=== PATIENT | female | born 1950 | race Caucasian/White ===

== ENCOUNTER → 2020-03-20 13:31 | Outpatient (CLI) | payer MEDICARE, SELFPAY ==
--- NOTE | ~2020-03-20 | XR_ITS ---
EXAMINATION: XR abdomen/kub 1V INDICATION: Calculus of the right kidney TECHNIQUE: Supine views of the abdomen were obtained on 2 radiographs. COMPARISON: 03/23/2019 FINDINGS: A stable 10 mm stone projects over the right mid kidney. No additional urinary tract calcul i are identified. There is a moderate volume of colonic stool. The visualized lung bases are clear. T here is mild right and moderate left hip osteoarthritis. IMPRESSION: 1. Stable right nephrolithiasis. Reviewed, dictated and finalized at location A.
== END ==
PROVIDERS: PCP Family Medicine; Visit Provider Urology
DX: N20.0 Calculus of kidney (principal)
CPT/HCPCS: 74018

== ENCOUNTER → 2021-07-09 12:39 | Outpatient (CLI) | payer MEDICARE, SELFPAY ==
--- NOTE | ~2021-07-09 | MM_ITS ---
EXAMINATION: MM screening [facility] BI w kendy HISTORY: Screening mammogram TECHNIQUE: Craniocaudal and mediolateral oblique 3-D tomosynthesis images were obtained and synthetic 2-D images were generated. CAD analysis was submitted and interpreted. COMPARISON: 03/23/2019, 03/18/2018 BREAST PARENCHYMAL COMPOSITION: There are scattered areas of fibroglandular density. FINDINGS: There is no evidence of suspicious mass, calcification, or architectural distortion to sugg est malignancy in either breast. There has been no suspicious interval change. IMPRESSION: 1. No mammographic evidence of malignancy. 2. Recommend routine screening mammography in one year. BI-RADS Category 1: Negative Reviewed, dictated and finalized at location A. T COIL WINDER
== END ==
PROVIDERS: PCP Family Medicine; Visit Provider Physician Assistant Medical
DX: Z12.31 Encounter for screening mammogram for malignant neoplasm of breast (principal)
CPT/HCPCS: 77063; 77067

== ENCOUNTER 2022-07-23 09:35 | Outpatient (CLI) | payer MEDICARE, SELFPAY | END 2022-07-23 09:36 | disposition home or self-care (01) | LOC: ANHBWCAUD 09:35 | PROVIDERS: PCP Family Medicine; Visit Provider Family Medicine | DX: H91.93 Unspecified hearing loss, bilateral (principal); H93.19 Tinnitus, unspecified ear | CPT/HCPCS: 92557; 92567 ==

== ENCOUNTER 2022-09-09 12:40 | Outpatient (CLI) | payer MEDICARE, SELFPAY ==
--- NOTE | ~2022-09-09 | US_ITS ---
EXAMINATION: US carotid duplex BI DATE: 09/09/2022 13:59 INDICATION: Atherosclerotic heart disease of [place] coronary arteries. TECHNIQUE: Grayscale, color Doppler, and pulsed Doppler images of the cervical carotid arteries were obtained. The degree of vessel stenosis is placed in one of the following categories: normal, <50%, 5 0-69%, >=70% but less than near-occlusion, near-occlusion, or total occlusion. Note that percent sten osis relative to normal distal artery lumen diameter is indirectly measured from velocity measurement s as described by Tk, et al. Radiology 2003; [id number]:[id number]. COMPARISON: None. FINDINGS: RIGHT: The right common carotid artery (CCA) peak systolic velocity (PSV) is 94 cm/s. The right internal car otid artery (ICA) PSV is 98 cm/s. The right ICA end-diastolic velocity (EDV) is 28 cm/s. The right IC A/CCA PSV ratio is 1.0. Grayscale and color Doppler images yield an estimate of <50% diameter reducti on from plaque in the ICA. The external carotid artery (ECA) PSV is 106 cm/s. There is antegrade flow in the right vertebral artery. LEFT: The left CCA PSV is 77 cm/s. The left ICA PSV is 89 cm/s. The left ICA EDV is 28 cm/s. The left ICA/C CA PSV ratio is 1.2. Grayscale and color Doppler images yield an estimate of <50% diameter reduction from plaque in the ICA. The ECA PSV is 98 cm/s. There is antegrade flow in the left vertebral artery. IMPRESSION: 1. <50% stenosis in the right internal carotid artery. 2. <50% stenosis in the left internal carotid artery. Reviewed, dictated and finalized at location B. M ADJUSTER
== END 2022-09-09 12:41 | disposition home or self-care (01) ==
PROVIDERS: PCP Family Medicine; Visit Provider Family Medicine
DX: I25.10 Atherosclerotic heart disease of native coronary artery without angina pectoris (principal); R09.89 Other specified symptoms and signs involving the circulatory and respiratory systems; I65.23 Occlusion and stenosis of bilateral carotid arteries
CPT/HCPCS: 93880

== ENCOUNTER → 2022-11-04 11:06 | Outpatient (CLI) | payer MEDICARE, SELFPAY ==
--- NOTE | ~2022-11-04 | CT_ITS ---
CT ANGIOGRAM HEAD History: Left pulsatile tinnitus. Technique: Noncontrast imaging of the brain was performed. Serial spiral axial images through the hea d were then obtained during arterial phase IV injection of 100 cc of Omnipaque 350. 3-D postprocessin g and MIP images were then reconstructed on the remote workstation. Dose reduction technique was used on this scan by utilizing automated exposure control and iterative reconstruction technique. The dos e-length product (DLP) was 1192.84 mGy-cm. Noncontrast brain findings: No parenchymal abnormality the brain seen. No acute infarct, intracranial hemorrhage, or mass lesion identified. Ventricles and subarachnoid spaces are unremarkable. Orbits a re grossly unremarkable. Paranasal sinuses and mastoid air cells are clear. Calvarium intact. CTA head findings: Distal vertebral arteries, basilar artery, and posterior cerebral arteries are pat ent. Distal internal carotid arteries, middle cerebral arteries, and anterior cerebral arteries are p atent. No stenosis or large vessel occlusion. No aneurysm. Impression: Unremarkable exam. Reviewed, dictated and finalized at location . Impression: Unremarkable exam.
[2022-11-04 11:26] LABS: Estimated Glomerular Filt Rate 55
== END ==
PROVIDERS: PCP Family Medicine; Visit Provider Otolaryngology
DX: H93.A2 Pulsatile tinnitus, left ear (principal); H61.21 Impacted cerumen, right ear
CPT/HCPCS: 70496; Q9967

== ENCOUNTER 2023-03-31 12:01 | Outpatient (CLI) | payer MEDICARE, SELFPAY ==
--- NOTE | ~2023-03-31 | XR_ITS ---
EXAMINATION: XR hand LT min 3V, XR hand RT min 3V DATE: 03/31/2023 12:18 INDICATION: Rheumatoid arthritis with limited range of motion at the bilateral hands TECHNIQUE: 1. Posteroanterior, oblique and lateral views of the left hand were obtained. 2. Posteroanterior, oblique and lateral views of the right hand were obtained. COMPARISON: None. FINDINGS: Diffuse osteopenia. There is moderate palmar subluxation at the left third metacarpophalangeal joint. Otherwise normal alignment at the bilateral hands and wrists. No fracture. Polyarticular osteoarthri tis characterized by nonuniform joint space narrowing and/or marginal osteophytes at the bilateral meléndez nds and wrists. The severe at the bilateral first carpal metacarpal joints and at the right and radio carpal and first metacarpophalangeal joints. Joint space narrowing is of moderate severity at the lef t first and third metacarpophalangeal joints in the right second, fourth and fifth metacarpophalangea l joints. Mild joint space narrowing at the left radiocarpal, bilateral mid carpal and triscaphe join ts. Additional mild joint space narrowing at the bilateral interphalangeal joints and remaining metac arpophalangeal joints. There is periarticular soft tissue swelling at several of the bilateral metaca rpophalangeal joints, more prominent on the left. No erosions to more specifically suggest inflammato ry arthritis such as rheumatoid although the prominence of the joint space narrowing at several of th e metacarpophalangeal joints would be typical of rheumatoid arthritis. IMPRESSION: 1. 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 There is an aty pical predominance at several of the metacarpophalangeal joints which suggests possibly secondary ost eoarthritis in the setting of rheumatoid arthritis or calcium pyrophosphate deposition (CPPD) disease , both of which preferentially affecting metacarpophalangeal joints. There are however no evident ero sions to more specifically suggest an underlying inflammatory arthritis. Reviewed, dictated and finalized at location A. IMPRESSION: 1. Moderate to severe polyarticular osteoarthritis at the bilateral hands and w rists. There is an atypical predominance at several of the metacarpophalangeal joints which suggests possibly secondary osteoarthritis in the setting of rheum atoid arthritis or calcium pyrophosphate deposition (CPPD) disease, both of whi ch preferentially affecting metacarpophalangeal joints. There are however no ev ident erosions to more specifically suggest an underlying inflammatory arthriti s.
== END 2023-03-31 12:02 | disposition home or self-care (01) ==
LOC: ANHIMG 12:05
PROVIDERS: PCP Family Medicine; Visit Provider Physician Assistant Surgical
DX: M06.9 Rheumatoid arthritis, unspecified (principal); M19.041 Primary osteoarthritis, right hand; M19.042 Primary osteoarthritis, left hand; M19.031 Primary osteoarthritis, right wrist; M19.032 Primary osteoarthritis, left wrist
CPT/HCPCS: 73130

== ENCOUNTER → 2023-04-08 11:32 | Outpatient (CLI) | payer MEDICARE, SELFPAY ==
--- NOTE | ~2023-04-08 | US_ITS ---
US soft tissue UE RT 04/08/2023 11:45 Indication: Rheumatoid arthritis Procedure: High-resolution Limited soft tissue ultrasound of the right hand at the second metacarpal phalangeal joint Comparison: No prior studies for comparison. Findings: Normal heterogeneous soft tissues without focal solid or cystic mass. Impression: 1: Normal soft tissue ultrasound of the right hand in the area of palpable concern. No discrete mass. Reviewed, dictated and finalized at location L. Impression: 1: Normal soft tissue ultrasound of the right hand in the area of palpable conc ede. No discrete mass.
== END ==
PROVIDERS: PCP Physician Assistant Surgical; Visit Provider Physician Assistant Surgical
DX: M06.9 Rheumatoid arthritis, unspecified (principal); R22.31 Localized swelling, mass and lump, right upper limb
CPT/HCPCS: 76882

== ENCOUNTER 2023-05-06 10:45 | Outpatient (RCR) | payer MEDICARE, SELFPAY ==
--- NOTE | 2023-04-07 12:07 | OTOPEVAL1 ---
Assessment and note entered by Elder Jang, ANTONIO/Priscilla, CHT Evaluation Information Assessment Status Evaluation Diagnosis RA Subjective Information Patient presents with dx of RA. She states she was dx with RA ~20 years ago and this is her first time receiving therapy. She states she has difficulties with gripping and pinching due to weakness and pain. Reported Pain Level Additional Pain Score Comments No pain at rest today. States her hand can get up to 6/10 with use. Assessment OT Clinical Summary Patient referred to outpatient hand therapy with dx of RA. The patient has severe ulnar drift of the ring and small fingers on the right hand with subluxing extensor tendons which restrict finger extension at the MCP joints. She has a mass over the MCP of the index finger and this is going to be evaluated with US imaging. Today a custom neoprene ulnar drift splint was fabricated for the patient and she verbalizes good, comfortable fit. Continued skilled OT indicated for fabrication of a nighttime resting hand splint, education on joint protection techniques, modalities, and therapeutic exercise to facilitate optimal functional use of her hand. Plan of Care Interventions Therapeutic Exercise,Manual Therapy,Therapeutic Activities,Hot Pack/Cold Pack,Self-Care/Home Management,Check Out for Orthotic/Pr,Paraffin OT Services Indicated Yes Treatment Frequency and 1x/week for 5 weeks Duration These treatments will address the objective and functional deficits as defined above. The patient will be advanced safely and appropriately in order for the patient to progress towards his/her prior level of function. Additional exercises will be introduced and as well as a comprehensive home exercise program upon discharge, if needed, ?to ensure carryover of functional gains achieved in the clinic. This treatment plan has been reviewed and agreement upon by the patient.
--- NOTE | 2023-04-07 12:08 | OPREHPOC ---
Outpatient Therapy Plan of Care This is a Multidisciplinary Plan of Care that may contain components documented by all disciplines (PT, OT, and ST.) OT Problem 1 OT Problem #1 Knowledge Deficit OT Goal 1 Goal 1. Patient to be independent with all materials. 2. Patient to be independent with splint wearing schedule. Target Visit 6 OT Problem 2 OT Problem #2 Pain OT Goal 1 Goal 1. Patient to report reduced right hand pain with use, stating 4/10 or less at worst . Target Visit 6 OT Problem 3 OT Problem #3 Impaired Range of Motion OT Goal 1 Goal 1. Patient to be able to wear supportive hand splint for ADL tasks to facilitate improved approximation and function of the extensor tendon to allow for better ivory carver and release of objects. Target Visit 6
--- NOTE | 2023-05-06 11:22 | OTOPDC ---
Assessment and note entered by ANTONIO Park/Priscilla, CHT Discharge Summary 05/06/23 Assessment Status Discharge Diagnosis RA Subjective Information Patient presents with dx of RA. She states she was dx with RA ~20 years ago and this is her first time receiving therapy. Therapy has focused on fabrication of splints for support. She wears a custom resting hand splint at night/during rest periods during the day. She wears an ulnar drift splint with hand use. Overall she reports reduced pain. She has no pain when wearing the resting hand splint and very little pain when wearing the ulnar drift splint. There have been no changes in functional ROM or strength. Progress noted with reduced pain and improved compensatory techniques for joint protection. Reported Pain Level Pain Score 0: Self Report Additional Pain Score Comments No pain when the hand is immobilized in the splint . She reports at worst her pain was up to a 7/10 in the index finger's MCP joint. She reports the pain isn't as frequent and doesn't last as long. Assessment OT Clinical Summary Patient referred to outpatient hand therapy with dx of RA. The patient has severe ulnar drift of the ring and small fingers on the right hand with subluxing extensor tendons which restrict finger extension at the MCP joints. She has been wearing an ulnar drift splint during the day to help with more of a functional grasp and release. She has a custom resting hand splint for positioning at night. She is very happy with these devices. Did not issue any strengthening as it was concerning to repetitively have her gripping with the extensor tendon subluxation at the MCP joints. Recommend she continue splint wear to help facilitate improved hand positioning and inhibit further drift of the digits. No further skilled OT indicated at this time. Plan of Care OT Services Indicated No
== END 2023-05-06 12:44 | disposition home or self-care (01) ==
LOC: ANHOT 10:45
PROVIDERS: Visit Provider Physician Assistant Surgical
DX: M06.9 Rheumatoid arthritis, unspecified (principal)
CPT/HCPCS: 97110; 97165; 97530; 97763; L3806; L3919